=== PATIENT | male | born 1955 | race Caucasian/White ===

== ENCOUNTER 2019-04-03 16:08 | Inpatient (IN) ==
[2019-04-03] MEDS ORDERED: Acetaminophen 325 MG TABLET PO ONE (19:42)
[2019-04-03] MEDS ORDERED: *HR* HYDROcodone/Acet 5/325 mg TABLET PO ONE (20:10)
[2019-04-03] MEDS ORDERED: Naloxone 0.4 MG/ML INJ IVP PRN (21:03)
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
[2019-04-03] MEDS ORDERED: Nicotine 21 MG PATCH.TD24 TD PRN (23:14)
[2019-04-04] MEDS: Azithromycin 500 MG in D5% in Water 250 ML IVPB SCH (00:43)
[2019-04-04 03:54] LABS: ABG Base Excess 2 mEq/L (-2 to 3); ABG HCO3 26 mEq/L (21-27); ABG Oxygen Saturation 96 % (95-98); ABG PCO2 41 mmHg (35-45); ABG PH 7.42 pH Units (7.32-7.45); ABG PO2 77 mmHg (85-104); ABG TCO2 28 mEq/L (20-26)
[2019-04-04] MEDS: *HR* Heparin 5,000 UNIT/ML VIAL SQ SCH ×2 (06:18→17:37)
[2019-04-04 06:33] LABS: Alanine Aminotransferase 11 Units/L (7-52); Albumin 3.9 g/dL (3.5-5.7); Alkaline Phosphatase 71 Units/L (34-104); Aspartate Amino Transferase 11 Units/L (13-39); BUN/Creatinine Ratio 11 (6-26); Bilirubin,Total 0.4 mg/dL (0.3-1.0); Blood Urea Nitrogen 8 mg/dL (8-23); Carbon Dioxide 28 mEq/L (23-29); Chloride 106 mEq/L (98-107); Glucose 104 mg/dL (70-105); Osmolality,Calculated 289 (280-300); Potassium 3.9 mEq/L (3.5-5.1); Sodium 140 mEq/L (136-145); Total Protein 5.9 g/dL (6.4-8.9); eGFR For Non-African Americans > 60 (> 60)
[2019-04-04 07:51] LABS: Hematocrit 33.6 % (37.5-50.1); Hemoglobin 11.1 g/dL (12.9-16.9); Mean Corpuscular Hemoglobin 30.7 pg (28.0-33.3); Mean Corpuscular Volume 92.8 fL (83.0-100.0); Mean Platelet Volume 9.9 fL (9.4-12.4); Platelet Count 298 K/mcL (140-400); Red Blood Count 3.62 M/mcL (4.19-5.50); Red Cell Distribution Width 13.3 % (11.5-14.5)
--- NOTE | 2019-04-04 08:47 | Internal Med Progress Note ---
Hospitalist Progress Note - Encounter Date of Encounter: 04/04/19 Time of Encounter: 08:45 - Subjective Interval History: I have seen and evaluated the patient at bedside. Patient with intermittent spells of confusion during my evaluation. patient believes the he is at a half-way facility. he also reports vivid dreams, during the past 2 days, reports productive cough of clear sputum and chills. as per patient's daughter patient was having visual hallucination at home and the patient believed they were deers. - Exam Vitals: Temp Pulse Resp BP Pulse Ox 98.5 F 60 16 159/75 96 04/04/19 07:32 04/04/19 07:32 04/04/19 07:32 04/04/19 07:32 04/04/19 07:32 Exam: Vitals: Reviewed General: Alert and oriented x2. In no distress. with spells of confusion Skin: Normal color, no rash, no lesions. HEENT: EOM, pupils equal, round and reactive. Cardiovascular: RRR, normal S1 & S2, no rubs, murmurs or gallops. Lungs: CTA b/l, no wheezes or crackles. Abdomen: Soft, non-tender, no rigidity. ostomy bag. Extremities: No deformity, no edema. b/l knee replacements Neurological: No focal neurological deficits. Rest of the physical exam is non contributory - Assessment and Plan (1) Acute encephalopathy Current Visit: Yes Status: Acute Assessment and Plan: per family there has been a sudden change in the patient's mental status. where he is having visual hallucinations. patient also reported having vivid dreams. the etiology of this sudden change in mental status is unclear, patient with no meningeal signs and no focal neurological deficits. Plan will consult psychiatry as there has been a change in some of the patient mood stabilizing medication Patient unable to have a MRI. has a pacemaker neurology consulted, dementia with lewy bodies tend to have a similar presentation but this is unlikely due to sudden nature of the presentation. (2) Coronary heart disease Current Visit: No Status: Chronic Assessment and Plan: On dual antiplatelet therapy with Plavix and Aspirin 81 mg by mouth daily. (3) Hypertension Current Visit: No Status: Chronic Assessment and Plan: Blood pressure is well controlled on metoprolol 25 mg by mouth daily. (4) Psoriatic arthritis Current Visit: No Status: Acute Assessment and Plan: per patient chart he is on Adalimumab injections every two weeks (5) Pneumonia Current Visit: Yes Status: Suspected Assessment and Plan: base on report from [facility] there is a suspicious of LLL pneumonia on chest x- ray. will repeat the chest x-ray continue empiric coverage with ceftrixone and azithromycin. urine for atypical sputum culture DVT Prophylaxis: On heparin subq - Summary of Assessment and Plan Summary of Assessment and Plan: patient to remain in the hospital due to acute change in mental status, with confusion spells and visual hallucinations. - Time Spent with Patient Total time spent is greater than 50% in coordination of care (as documented) at patient's floor/unit and/or counseling patient: Greater than 35 minutes (40) Plan of Care Discussed with: nurse Internal Medicine: Result - Labs CBC & Chem 7: 04/04/19 06:31 04/04/19 06:02 Labs: Short CBC 04/04/19 Range/Units 06:31 WBC 6.8 (4.3-11.1) K/mcL Hgb 11.1 L (12.9-16.9) g/dL Hct 33.6 L (37.5-50.1) % Plt Count 298 (140-400) K/mcL BMP 04/04/19 06:02 Sodium 140 Potassium 3.9 Chloride 106 Carbon Dioxide 28 BUN 8 Creatinine 0.71 Glucose 104 Calcium 9.0 Liver Function 04/04/19 Range/Units 06:02 Total Bilirubin 0.4 (0.3-1.0) mg/dL AST 11 L (13-39) Units/L ALT 11 (7-52) Units/L Alkaline Phosphatase 71 (34-104) Units/L Albumin 3.9 (3.5-5.7) g/dL - ABG Interpretation ABG results: ABG ABG pH 7.42 pH Units (7.32-7.45) 04/04/19 03:48 ABG pCO2 41 mmHg (35-45) 04/04/19 03:48 ABG pO2 77 mmHg (85-104) L 04/04/19 03:48 ABG O2 Saturation 96 % (95-98) 04/04/19 03:48 (2) Coronary heart disease Qualifiers: Qualified Code(s): I25.10 - Atherosclerotic heart disease of [place] coronary artery without angina pectoris (3) Hypertension Qualifiers: Qualified Code(s): I10 - Essential (primary) hypertension (5) Pneumonia Qualifiers: Qualified Code(s): J18.9 - Pneumonia, unspecified organism
[2019-04-04] MEDS ORDERED: cefTRIAXone 1,000 MG in Water for inj. (sterile) 20 ML 10 ML IVP SCH (09:00)
[2019-04-04] MEDS ORDERED: Aspirin Enteric Coated 81 MG Tablet PO SCH (09:00)
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
[2019-04-04] MEDS ORDERED: Isovue-370 500 ML BOTTLE IVP ONE (15:23)
[2019-04-04] MEDS ORDERED: *HR* LORazepam 2 MG/ML VIAL IVP PRN (15:56)
[2019-04-04] MEDS ORDERED: Acetaminophen 325 MG TABLET PO PRN (17:22)
[2019-04-04] MEDS ORDERED: 0.9 % Sodium Chloride 500 ML IVC ONE (19:50)
--- NOTE | 2019-04-04 20:26 | Event Note ---
Date of Encounter: 04/04/19 Time of Encounter: 19:06 Notified by nurse of patient wanting to leave AMA and being uncooperative with staff. Went to bedside to assess patient, educated on plan of care, patient now agreeable to stay. Will order sitter due to intermittent confusion and being uncooperative with staff. Will also order 500ml fluid bolus due to elevated lactic acid. Nurse to notify of any changes or concerns. Discussed with Dr Parker.
[2019-04-04] MEDS ORDERED: *HR* LORazepam 2 MG/ML VIAL IVP ONE (23:55)
[2019-04-05] MEDS ORDERED: Haloperidol Lactate 5 MG/ML VIAL IVP ONE (00:31)
[2019-04-05] MEDS ORDERED: Dexmedetomidine HCl 400 MCG/100 ML MLS IVC SCH (00:45)
[2019-04-05] MEDS ORDERED: Haloperidol Lactate 5 MG/ML VIAL IM ONE (00:46)
[2019-04-05] MEDS: Dexmedetomidine HCl 400 MCG/100 ML MLS IVC SCH ×6 (02:00→23:35)
[2019-04-05] MEDS ORDERED: Naloxone 0.4 MG/ML INJ IVP PRN (02:19)
[2019-04-05] MEDS ORDERED: Nicotine 21 MG PATCH.TD24 TD PRN (02:19)
[2019-04-05] MEDS ORDERED: *HR* LORazepam 2 MG/ML VIAL IVP PRN (02:19)
[2019-04-05] MEDS ORDERED: Acetaminophen 325 MG TABLET PO PRN (02:19)
[2019-04-05] MEDS: *HR* Heparin 5,000 UNIT/ML VIAL SQ SCH (05:51)
[2019-04-05] MEDS ORDERED: Azithromycin 500 MG in D5% in Water 250 ML IVPB SCH (06:00)
[2019-04-05 08:04] LABS: Basophils % 0.4 %; Eosinophils # 0.1 K/mcL (0.0-0.6); Eosinophils % 0.8 %; Hematocrit 34.1 % (37.5-50.1); Hemoglobin 11.1 g/dL (12.9-16.9); Immature Granulocytes % 0.3 % (0-4); Lymphocytes % 12.9 %; Mean Corpuscular HGB Conc 32.6 g/dL (31.6-35.5); Mean Corpuscular Hemoglobin 30.6 pg (28.0-33.3); Mean Corpuscular Volume 93.9 fL (83.0-100.0); Mean Platelet Volume 9.5 fL (9.4-12.4); Monocytes # 0.5 K/mcL (0.0-1.3); Monocytes % 7.1 %; Neutrophils # 5.8 K/mcL (1.6-8.9); Platelet Count 253 K/mcL (140-400); Red Blood Count 3.63 M/mcL (4.19-5.50); Red Cell Distribution Width 13.2 % (11.5-14.5); Segmented Neutrophils % 78.5 %
[2019-04-05] MEDS ORDERED: Aminoglycoside Consult 1 EACH MC ONE (08:09)
[2019-04-05 08:27] LABS: BUN/Creatinine Ratio 14 (6-26); Blood Urea Nitrogen 10 mg/dL (8-23); Calcium 9.2 mg/dL (8.6-10.3); Carbon Dioxide 28 mEq/L (23-29); Chloride 105 mEq/L (98-107); Glucose 122 mg/dL (70-105); Magnesium 2.1 mg/dL (1.6-2.6); Osmolality,Calculated 290 (280-300); Phosphorous 3.4 mg/dL (2.7-4.5); Potassium 3.6 mEq/L (3.5-5.1); Sodium 140 mEq/L (136-145); eGFR For Non-African Americans > 60 (> 60)
[2019-04-05] MEDS: Aspirin Enteric Coated 81 MG Tablet PO SCH (08:57)
[2019-04-05] MEDS ORDERED: cefTRIAXone 1,000 MG in Water for inj. (sterile) 20 ML 10 ML IVP SCH (09:00)
[2019-04-05] MEDS ORDERED: cefTRIAXone 2,000 MG in Water for inj. (sterile) 20 ML 20 ML IVP SCH ×2 (09:00→21:00)
--- NOTE | 2019-04-05 09:47 | Internal Med Progress Note ---
Hospitalist Progress Note - Encounter Date of Encounter: 04/05/19 Time of Encounter: 09:41 - Subjective Interval History: I have seen and evaluated the patient at bedside. reported by the night team the patient had episode of confusion and agitation not responding to ativan or haldo. patient was started on a precedex drip. today during my evaluation patient is AOX4. In no distress, denies headache, nausea or vomiting. denies chest pain, knee pain or abdominal pain. - Exam Vitals: Temp Pulse Resp BP Pulse Ox 98.2 F 60 16 117/68 98 04/05/19 06:58 04/05/19 06:58 04/05/19 06:58 04/05/19 06:58 04/05/19 06:58 Exam: Vitals: Reviewed General: Alert and oriented x4. In no distress. Cardiovascular: RRR, normal S1 & S2, no rubs, murmurs or gallops. Lungs: CTA b/l, no wheezes or crackles. Abdomen: Soft, non-tender, no rigidity. ostomy bag. NABS in all 4 quadrants Extremities: No edema. right knee replacements Neurological: No focal neurological deficits. Rest of the physical exam is non contributory - Assessment and Plan (1) Acute encephalopathy Current Visit: Yes Status: Acute Assessment and Plan: intermittent confusion/agitation unclear etiology, at first believed it was associated with discontinuation of clonazepam (discontinued 2 weeks ago), vs possible infection, viral vs bacterial (less likely). patient with an episode of acute confusion and agitation last night. also a fever 101.0. patient with no nucal rigidity, headache or other meningeal signs. patient was started on vancomycin per pharmacy protocol, ceftriaxone increased to 2gm/IV Q12HRs. discussed with neurology about obtaining an LP, but the patient has been on clop idogrel and IR stated the patient needs to be off the medication for at least 7 days before they do the LP Neurologist will attempt LP at bedside. will start the patient empirically on acyclovir Head CT and CTA: unremarkable patient unable to have MRI due to non-compatible pacemaker ID has been consulted. EEG ordered psychiatry consulted, recommendations to follow. ESR, CRP, ADITHYA ordered titrate precedex drip off (2) Coronary heart disease Current Visit: No Status: Chronic Assessment and Plan: Patient on dual antiplatelet therapy. hold plavix, continue aspirin 81mg/PO daily (3) Hypertension Current Visit: No Status: Chronic Assessment and Plan: Blood pressure is well controlled. Patient is on metoprolol 25 mg by mouth daily. (4) Psoriatic arthritis Current Visit: No Status: Acute Assessment and Plan: patient on Otezla. (5) Pneumonia Current Visit: Yes Status: Suspected Assessment and Plan: I do not believe the patient has pneumonia. chest x-ray before and after hydration: No acute abnormality. patient denies productive cough. discontinue azithromycin DVT Prophylaxis: Hold today dose of heparin. patient will have an LP - Summary of Assessment and Plan Summary of Assessment and Plan: patient to remain in the hospital due to encephalopathy. unclear etiology. scheduled for LP today. - Time Spent with Patient Total time spent is greater than 50% in coordination of care (as documented) at patient's floor/unit and/or counseling patient: Greater than 35 minutes (45) Plan of Care Discussed with: patient (his daughter and the nurse.) Internal Medicine: Result - Labs CBC & Chem 7: 04/05/19 07:47 04/05/19 07:47 Labs: Short CBC 04/05/19 Range/Units 07:47 WBC 7.4 (4.3-11.1) K/mcL Hgb 11.1 L (12.9-16.9) g/dL Hct 34.1 L (37.5-50.1) % Plt Count 253 (140-400) K/mcL Neutrophils # 5.8 (1.6-8.9) K/mcL BMP 04/05/19 07:47 Sodium 140 Potassium 3.6 Chloride 105 Carbon Dioxide 28 BUN 10 Creatinine 0.74 Glucose 122 H Calcium 9.2 - ABG Interpretation ABG results: ABG ABG pH 7.42 pH Units (7.32-7.45) 04/04/19 03:48 ABG pCO2 41 mmHg (35-45) 04/04/19 03:48 ABG pO2 77 mmHg (85-104) L 04/04/19 03:48 ABG O2 Saturation 96 % (95-98) 04/04/19 03:48 - Impressions Impressions Chest X-Ray 04/04/19 08:41 IMPRESSION: 1. No acute abnormality. D/ / Charles Yarbrough MD / Charles Yarbrough MD Interpreting Provider: Charles Yarbrough MD Head CTA 04/04/19 15:23 IMPRESSION: 1. No acute intracranial abnormality. 2. No high-grade stenosis or focal occlusion involving the intracranial vasculature. No evidence of intracranial aneurysm. 3. No CTA evidence of vasculitis. Please note that conventional angiogram would be a more sensitive examination for evaluation of vasculitis. 4. Paranasal sinus disease, with evidence of previous sinus surgery. This is partially imaged. D/ / 04/04/2019 17:18:26 Zuhair Alba MD / nirmala Interpreting Provider: Zuhair Alba MD (2) Coronary heart disease Qualifiers: Coronary Disease-Associated Artery/Lesion type: [place] artery [place] vs. transplanted heart: [place] heart Associated angina: without angina Qualified Code(s): I25.10 - Atherosclerotic heart disease of [place] coronary artery wit hout angina pectoris (3) Hypertension Qualifiers: Hypertension type: essential hypertension Qualified Code(s): I10 - Essential (primary) hypertension (5) Pneumonia Qualifiers: Pneumonia type: due to unspecified organism Laterality: unspecified laterality Lung location: unspecified part of lung Qualified Code(s): J18.9 - Pneumonia, unspecified organism
[2019-04-05] MEDS ORDERED: Acyclovir 750 MG in D5% in Water 250 ML IVPB SCH (09:52)
[2019-04-05] MEDS: Azithromycin 500 MG in D5% in Water 250 ML IVPB SCH (10:37)
--- NOTE | 2019-04-05 11:13 | Neurology Progress Note ---
<Carlos Salcido J - Last Filed: 04/05/19 16:47> Date of Encounter: 04/05/19 Time of Encounter: 11:10 Assessment and Plan (1) Acute encephalopathy Current Visit: Yes Status: Acute Clinically, the patient continues to have waxing and waning confusion with moments of lucidity. He continues to deny headaches, neck stiffness or neck pain. His neurological exam is nonfocal and nonlateralizing. His daughters at the bedside and notes that he has had recent abrupt discontinuation of clonazepam and one could consider that his acute encephalopathy could be due to withdrawal of benzodiazepines. However, he does have a known history of septic joint 3 S/P knee arthroscopy. 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 Agree with psychiatric consultation. EEG pending. CTA head and neck completed showing no acute intracranial abnormality, no high-grade stenosis or focal occlusion involving the intracranial vasculature, no evidence of aneurysm, no evidence of vasculitis. Given his acute encephalopathy be also recommend urinalysis and urine tox screen, and rule out infectious etiology. Recommend orthopedic consultation for evaluation of right knee given history of septic joint 3 and ongoing knee pain and joint tenderness. Blood cultures pending. Neurology will continue to follow. Subjective Principal diagnosis: Acute encephalopathy Interval history: Patient seen in follow-up for acute encephalopathy. He was transferred to [facility] overnight for closer monitoring due to confusion and combativeness. This morning the patient is having intermittent episodes of confusion. His daughters at the bedside and reports that this all began approximately 4 days ago and has been getting worse since. She notes that he is been on Ativan in the past chronically but this was abruptly discontinued by his PCP in late March. She states that normally he is very independent, calm and cooperative and is never combative. She is concerned that recent medication changes may have led to his condition. Additionally, both the daughter and patient notes that he has had 3 right knee replacements and that also have ended up with a septic joint. The patient notes that his right knee is very tender and that this is been getting worse over the last week or so. Objective - Constitutional Vitals: Temp Pulse Resp BP Pulse Ox 98.2 F 60 16 109/56 98 04/05/19 06:58 04/05/19 09:24 04/05/19 06:58 04/05/19 09:24 04/05/19 06:58 Exam: Examination: General Examination: *CONSTITUTIONAL: Alert and oriented 3, no acute distress, T4 to 5 signs *GENERAL APPEARANCE OF PATIENT appears healthy and well groomed *EYES: pupils equal, round, reactive to light and accommodation, conjunctiva clear without masses or ulcerations, fundi normal. *CARDIOVASCULAR RRR, S1, S2, no mumurs, rubs, or gallops, no peripheral edema, distal temperature normal, dorsalis pedis pulses normal. Musculoskeletal: *GAIT AND STATION normal, with normal Romberg testing, no abnormalities such as broad base gait or spasticity *ASSESSMENT OF MUSCLE STRENGTH IN THE UPPER AND LOWER EXTREMITIES bilateral deltoid, bicep, tricep, toll test worker strength, hip flexors ,anterior tibialis, dorsoflexion of the foot 5/5 *MUSCLE TONE IN THE UPPER AND LOWER EXTREMITIES normal. No abnormal movements, fasciculations or atrophy identified. PSYCH: Not responding to internal stimuli, does not appear to be hallucinating, calm and cooperative Neurological: *ORIENTATION to person, situation, time and place *RECURRENT AND REMOTE MEMORY intact *ATTENTION AND CONCENTRATION are altered; has waxing and waning episodes of confusion and disorientation as well as some loose association with moments of lucidity *LANGUAGE FUNCTION no significant aphasia or dysarthia was noted. *FUND OF KNOWLEDGE aware of current events, past history, vocabulary *MENTAL attention span and concentration normal. *CN II optic fundi were normal, no papilledema noted. *CN III,IV, PERRLA extraocular eye movements were full, no nystagmus and no ptosis noted. *CN V shows normal sensation and jaw opens symmetrically. *CN VII shows normal facial movement symmetrically, upper and lower bilaterally. *CN VIII shows no significant hearing loss on exam *CN IX,,X palate elevated symmetrically *CN XI normal strength in the sternocleidomastoid muscles, symmetrical shoulder shrugging. *CN XII tongue protruded in the midline, with normal strength and movement. *SENSORY EXAMINATION light touch intact *REFLEXES: deep tendon reflexes were normal and symmetrical , grade 2/4 diffusely, no pathological reflexes were noted. *CEREBELLAR TESTING normal finger to nose, heel/knee/ibrahim *PAIN LEVEL 4/10 right knee pain Results - Laboratory Findings CBC and BMP: 04/05/19 07:47 04/05/19 07:47 Abnormal lab findings: Abnormal lab results RBC 3.63 M/mcL (4.19-5.50) L 04/05/19 07:47 Hgb 11.1 g/dL (12.9-16.9) L 04/05/19 07:47 Hct 34.1 % (37.5-50.1) L 04/05/19 07:47 ESR 19 mm/hr (0-10) H 04/05/19 07:47 ABG pO2 77 mmHg (85-104) L 04/04/19 03:48 ABG Total CO2 28 mEq/L (20-26) H 04/04/19 03:48 Glucose 122 mg/dL (70-105) H 04/05/19 07:47 POC Glucose 106 mg/dL (70-99) H 04/04/19 17:32 Lactic Acid 2.8 mmol/L (0.5-2.2) H 04/04/19 18:07 AST 11 Units/L (13-39) L 04/04/19 06:02 13 mg/L (Less than 10) H 04/05/19 10:20 5.9 g/dL (6.4-8.9) L 04/04/19 06:02 2.0 g/dL (2.4-3.5) L 04/04/19 06:02 <Christiano Jamison - Last Filed: 04/05/19 18:12> Date of Encounter: 04/05/19 Assessment and Plan (1) Acute encephalopathy Current Visit: Yes Status: Acute Patient at this time seems to be less agitated. He seems to be fairly lucid at the time however this seems to fluctuate during the day. Generally I would not expect a primary neurologic problem to behave in this manner other than seizure. Certainly I would not expect a central nervous system infectious process to behave in this manner. I agree that the underlying etiology of this is more likely due to medication effect or some other underlying metabolic etiology. Unfortunately I am not going to be able to perform a lumbar puncture. Apparently he has a morphine pump there is localized somewhere between the L2 and L3 levels. I am not comfortable performing a bedside lumbar puncture on this patient. However from a clinical perspective it is not likely that we are dealing with a bacterial meningitis. Also the EEG was normal without any evidence of temporal lobe slowing or spikes. The CT scan of the head revealed no evidence of temporal lobe enhancement. I will also feel that these 2 factors along with his clinical presentation which is been my waxing and waning suggest a low probability of herpes encephalitis. However without an LP we cannot be 100% certain. With that in mind unless another etiology to explain his mental status changes is identified, we should maintain the empiric acyclovir treatment per protocol. Also agree with ruling out the right knee as a source of infection. Subjective Interval history: The chart was reviewed, the patient was seen and personally examined indepen dently.I have personally performed a [id number] assessment of the patient and have reviewed the PA/ECMO SPECIALIST note. My impressions are as follows: I agree with the history as recorded above by the PRINCIPAL DATA ARCHITECT. Objective - Constitutional Vitals: Temp Pulse Resp BP Pulse Ox 99.1 F 60 18 129/68 96 04/05/19 11:28 04/05/19 17:26 04/05/19 11:28 04/05/19 17:26 04/05/19 17:26 Exam: I did perform a [id number] for neurologic examination of this patient. I agree with the documentation as above. Results - Laboratory Findings CBC and BMP: 04/05/19 07:47 04/05/19 07:47 Abnormal lab findings: Abnormal lab results RBC 3.63 M/mcL (4.19-5.50) L 04/05/19 07:47 Hgb 11.1 g/dL (12.9-16.9) L 04/05/19 07:47 Hct 34.1 % (37.5-50.1) L 04/05/19 07:47 ESR 19 mm/hr (0-10) H 04/05/19 07:47 ABG pO2 77 mmHg (85-104) L 04/04/19 03:48 ABG Total CO2 28 mEq/L (20-26) H 04/04/19 03:48 Glucose 122 mg/dL (70-105) H 04/05/19 07:47 POC Glucose 106 mg/dL (70-99) H 04/04/19 17:32 Lactic Acid 2.8 mmol/L (0.5-2.2) H 04/04/19 18:07 AST 11 Units/L (13-39) L 04/04/19 06:02 13 mg/L (Less than 10) H 04/05/19 10:20 5.9 g/dL (6.4-8.9) L 04/04/19 06:02 2.0 g/dL (2.4-3.5) L 04/04/19 06:02
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
[2019-04-05 16:41] LABS: Adenovirus Not Detected (Not Detect); Bordetella Pertussis Not Detected (Not Detect); Chlamydophila pneumoniae Not Detected (Not Detect); Coronavirus 229E Not Detected (Not Detect); Coronavirus HKU1 Not Detected (Not Detect); Coronavirus NL63 Not Detected (Not Detect); Coronavirus OC43 Not Detected (Not Detect); Human Metapneumovirus Not Detected (Not Detect); Human Rhinovirus/Enterovirus Not Detected (Not Detect); Influenza A Subtype 2009 H1 Not Detected (Not Detect); Influenza A Untypeable Not Detected (Not Detect); Influenza B Not Detected (Not Detect); Mycoplasma pneumoniae Not Detected (Not Detect); Parainfluenza Virus 1 Not Detected (Not Detect); Parainfluenza Virus 2 Not Detected (Not Detect); Parainfluenza Virus 3 Not Detected (Not Detect); Parainfluenza Virus 4 Not Detected (Not Detect); Respiratory Syncytial Virus Not Detected (Not Detect)
--- NOTE | 2019-04-05 18:08 | EEG/EMG/Oth Biometrics Report ---
EEG Procedure Report EEG Procedure: Routine EEG Procedure Note: This is a report of a 21 channel bipolar and referential montage EEG. Posterior dominant rhythm of 8 Hz moderate to low voltage alpha frequencies identified symmetrically in the posterior head regions. This rhythm attenuates symmetrically evaluating. Superimposed beta frequencies are present throughout the recording as well. Hyperventilation is not performed during the recording. Intermittent drowsiness is identified in recording as reference by dropout of the posterior dominant rhythm and emergence of vertex activity. However the patient does not progress to stage II sleep. Photic stimulations performed and produces a symmetric driving response. EKG rhythm strip reveals normal sinus rhythm at 72 bpm. Impressions: This EEG recording is within normal limits. There is no evidence of epileptiform activity identified during the recording. Comment: A normal EEG does not preclude a diagnosis of seizure or epilepsy. If the clinical suspicion for seizure activity is high, serial EEGs or perhaps a prolonged recording may increase the yield. Please correlate clinically.
[2019-04-05] MEDS: Acyclovir 750 MG in D5% in Water 250 ML IVPB SCH (18:28)
[2019-04-05] MEDS: APREMILAST 30 MG PO SCH (21:21)
[2019-04-05] MEDS: Doxycycline 100 MG CAPSULE PO SCH (21:24)
[2019-04-06] MEDS: Acyclovir 750 MG in D5% in Water 250 ML IVPB SCH ×3 (04:24→18:38)
--- NOTE | 2019-04-06 07:48 | Neurology Progress Note ---
Date of Encounter: 04/06/19 Time of Encounter: 07:46 Assessment and Plan (1) Acute encephalopathy Current Visit: Yes Status: Acute Ultimately it seems that this patient was experiencing symptoms of acute delirium. We will not able to clearly identify a specific cause. In my opinion a central nervous system infectious process seems unlikely, particularly since the CT scan was unrevealing, and the EEG was normal. From a clinical perspective he did not appear to be compromised enough for this to have been secondary to a bacterial meningitis. Question remains whether not he may have had a herpes encephalitis that was treated with acyclovir to the point where he is now improved. In any regard his mental status seems to be improving day by day. I am not been able to identify a primary central nervous system process here. Consider having the patient home on 7 days of oral acyclovir. Otherwise I will reevaluate him at your request. Subjective Principal diagnosis: Acute encephalopathy Interval history: Chart was reviewed, the patient was seen and examined. No acute changes were reported overnight. Patient this morning states he feels fine. Overall central processing is gradually improving day by day. He knows he is in [facility], he knows the month is March. He is anxious today because he was supposed to have his morphine pump refilled in the gentleman who takes care of this was going to be coming to his home today. He wants to call the gentleman and inform him that he will not be at home and that he is in the hospital his conversation and processing however are intact. He denies headache. Denies any involuntary movements. Psychiatry consult seen and appreciated. I agree that more than likely we are dealing with delirium, however the etiology has not been clearly established. I was unable to complete the spinal tap yesterday because I am not able to clearly identify the location of the pump tubing which she states is in the lumbar spine. Objective - Constitutional Vitals: Temp Pulse Resp BP Pulse Ox 98.5 F 60 16 128/73 95 04/06/19 03:32 04/06/19 03:32 04/06/19 03:32 04/06/19 03:32 04/06/19 03:32 Exam: Examination: General Examination: *CONSTITUTIONAL: Alert and oriented x 3 *GENERAL APPEARANCE OF PATIENT appears healthy and well groomed *EYES: pupils equal, round, reactive to light and accommodation, conjunctiva clear without masses or ulcerations, fundi normal. *CARDIOVASCULAR RRR, S1, S2, no mumurs, rubs, or gallops, no peripheral edema, distal temperature normal, dorsalis pedis pulses normal. Musculoskeletal: *GAIT AND STATION not assessed, however his right knee is partially fused. *ASSESSMENT OF MUSCLE STRENGTH IN THE UPPER AND LOWER EXTREMITIES bilateral deltoid, bicep, tricep, lease out worker strength, hip flexors ,anterior tibialis, are all 5/5. I am unable to assess the right quadriceps strength. Left quadricep strength is normal. *MUSCLE TONE IN THE UPPER AND LOWER EXTREMITIES normal strength bulk and tone of both upper extremities. There is some atrophy of the right quadriceps and right leg below the knee secondary to immobility of the right knee. He has normal bulk and tone of the left lower extremity. Neurological: *ORIENTATION to person, situation, time and place *RECURRENT AND REMOTE MEMORY intact *ATTENTION AND CONCENTRATION are altered; has waxing and waning episodes of confusion and disorientation as well as some loose association with moments of lucidity *LANGUAGE FUNCTION no significant aphasia or dysarthia was noted. *FUND OF KNOWLEDGE aware of current events, past history, vocabulary *MENTAL attention span and concentration normal. *CN II optic fundi were normal, no papilledema noted. *CN III,IV, PERRLA extraocular eye movements were full, no nystagmus and no ptosis noted. *CN V shows normal sensation and jaw opens symmetrically. *CN VII shows normal facial movement symmetrically, upper and lower bilaterally. *CN VIII shows no significant hearing loss on exam *CN IX,,X palate elevated symmetrically *CN XI normal strength in the sternocleidomastoid muscles, symmetrical shoulder shrugging. *CN XII tongue protruded in the midline, with normal strength and movement. *SENSORY EXAMINATION light touch intact *REFLEXES: deep tendon reflexes were normal and symmetrical , grade 2/4 diffusely, no pathological reflexes were noted. *CEREBELLAR TESTING normal finger to nose, heel/knee/ibrahim *PAIN LEVEL 4/10 right knee pain Results - Laboratory Findings CBC and BMP: 04/05/19 07:47 04/05/19 07:47 Abnormal lab findings: Abnormal lab results RBC 3.63 M/mcL (4.19-5.50) L 04/05/19 07:47 Hgb 11.1 g/dL (12.9-16.9) L 04/05/19 07:47 Hct 34.1 % (37.5-50.1) L 04/05/19 07:47 ESR 19 mm/hr (0-10) H 04/05/19 07:47 ABG pO2 77 mmHg (85-104) L 04/04/19 03:48 ABG Total CO2 28 mEq/L (20-26) H 04/04/19 03:48 Glucose 122 mg/dL (70-105) H 04/05/19 07:47 POC Glucose 106 mg/dL (70-99) H 04/04/19 17:32 Lactic Acid 2.8 mmol/L (0.5-2.2) H 04/04/19 18:07 AST 11 Units/L (13-39) 04/04/19 06:02 13 mg/L (Less than 10) H 04/05/19 10:20 5.9 g/dL (6.4-8.9) 04/04/19 06:02 2.0 g/dL (2.4-3.5) 04/04/19 06:02
[2019-04-06] MEDS: APREMILAST 30 MG PO SCH ×2 (08:30→19:57)
[2019-04-06] MEDS: Aspirin Enteric Coated 81 MG Tablet PO SCH (08:35)
[2019-04-06] MEDS: Doxycycline 100 MG CAPSULE PO SCH ×2 (08:35→19:57)
[2019-04-06 09:41] LABS: Basophils % 0.4 %; Eosinophils # 0.1 K/mcL (0.0-0.6); Eosinophils % 1.7 %; Hematocrit 34.2 % (37.5-50.1); Immature Granulocytes % 0.4 % (0-4); Lymphocytes # 0.7 K/mcL (0.6-4.6); Mean Corpuscular HGB Conc 32.2 g/dL (31.6-35.5); Mean Corpuscular Hemoglobin 30.1 pg (28.0-33.3); Mean Corpuscular Volume 93.4 fL (83.0-100.0); Mean Platelet Volume 9.7 fL (9.4-12.4); Monocytes # 0.4 K/mcL (0.0-1.3); Monocytes % 5.1 %; Neutrophils # 7.1 K/mcL (1.6-8.9); Platelet Count 250 K/mcL (140-400); Red Blood Count 3.66 M/mcL (4.19-5.50); Red Cell Distribution Width 13.1 % (11.5-14.5); Segmented Neutrophils % 84.4 %
[2019-04-06 09:57] LABS: BUN/Creatinine Ratio 10 (6-26); Blood Urea Nitrogen 7 mg/dL (8-23); Calcium 8.8 mg/dL (8.6-10.3); Carbon Dioxide 29 mEq/L (23-29); Chloride 106 mEq/L (98-107); Glucose 119 mg/dL (70-105); Magnesium 1.9 mg/dL (1.6-2.6); Osmolality,Calculated 287 (280-300); Phosphorous 3.2 mg/dL (2.7-4.5); Potassium 3.7 mEq/L (3.5-5.1); Sodium 139 mEq/L (136-145); eGFR For Non-African Americans > 60 (> 60)
--- NOTE | 2019-04-06 13:55 | Infectious Disease Progress No ---
ID Progress Note Date of Encounter: 04/06/19 Time of Encounter: 11:30 - Subjective Subjective: Since seen and examined. Overnight events noted. Patient states overall he feels 100% better today. His daughter endorses that he has had a complete turnaround since admission. Denies fevers, chills, or rigors. Denies chest pain, shortness of breath, or cough. Denies nausea, vomiting, diarrhea, or constipation. Denies abdominal pain or urinary complaints. Reports chronic pain to the right knee but is at baseline. Denies oral thrush or new skin lesions. - Objective CBC & Chem 7: 04/06/19 09:23 04/06/19 09:23 - Exam Vitals: Temp Pulse Resp BP Pulse Ox 98.5 F 68 16 141/70 95 04/06/19 12:01 04/06/19 12:01 04/06/19 12:01 04/06/19 12:01 04/06/19 12:01 Exam: Head: Atraumatic, normal inspection, normocephalic. Eye: EOMI, PERRLA, no scleral icterus noted. ENT: Mucous membranes moist. No odontogenic infection noted. Neck: Normal inspection, no meningismus. Respiratory: Clear to auscultation. No rales, respiratory distress, rhonchi, or wheezes noted. Cardiovascular: Regular rate and rhythm, S1 and S2 audible. No murmurs, rubs, or gallops. GI: Soft, nondistended, normal bowel sounds. Extremities:No joint swelling, pedal edema, or tenderness noted. Well-healed surgical scar noted to the right anterior knee without surrounding erythema or warmth. Mild tenderness noted with palpation. Mild edema noted. Patient states this is at baseline. Back: Normal inspection. No vertebral tenderness noted. Neurological: Alert, oriented 3, no focal deficits. Psychiatric: normal affect, normal mood. Skin: Dry, intact, warm. Normal color. No rashes. - Assessment and Plan (1) Acute encephalopathy Status: Resolved Etiology: Unclear. Infectious versus other. No meningeal signs. CT head negative except for chronic sinusitis. LP not completed. Neurology consult it. Feels that there is a low index of suspicion for central nervous system infection, but it is possible. Resolved. Currently on acyclovir. SNOMED Code(s): 03014323, 941494445 (2) Fever Status: Acute Etiology: unlcear. Associated with AMS but mentation is back at baseline. Appreciate neurology and psych eval and input. RIP negative. Resolved. Qualifiers: Fever type: unspecified Qualified Code(s): R50.9 - Fever, unspecified SNOMED Code(s): 535340808 (3) History of total knee arthroplasty Status: Chronic Currently does not appear frankly infected. ESR and CRP not impressive. Patient on chronic oral suppressive doxycycline. Qualifiers: Laterality: right Qualified Code(s): Z96.651 - Presence of right artificial knee joint SNOMED Code(s): 4024322084098, 3018390881298, 79519882009778 (4) Knee pain, right Status: Acute Chronic, at baseline per patient report. Pain management per the primary team. Qualifiers: Chronicity: acute Qualified Code(s): M25.561 - Pain in right knee SNOMED Code(s): 58851692 (5) Nicotine dependence Status: Acute Qualifiers: Nicotine product type: cigarettes Substance use status: uncomplicated Qualified Code(s): F17.210 - Nicotine dependence, cigarettes, uncomplicated SNOMED Code(s): 58893178 (6) Penicillin allergy Status: Acute Had allergy to ampicillin with rash when he was in his 30's. SNOMED Code(s): 81696571 (7) S/P colostomy Status: Acute States output back to normal. SNOMED Code(s): 447616979, 362879029, 288411230 (8) Sinusitis Status: Acute Chronic, noted on CT, but could contribute to the patient's clinical picture I suppose. Qualifiers: Sinusitis location: unspecified location Chronicity: chronic Qualified Code(s): J32.9 - Chronic sinusitis, unspecified SNOMED Code(s): 16259047 - Recommendations Recommendations: Continue doxycycline 100mg PO BID. Start clindamycin PO for possible sinusitis. Duration of treatment depends on the clinical picture. Monitor renal function and dose-adjust antibiotics. Consult Discharge Plan - Plan Instructions: Clindamycin (By mouth), Acyclovir (By mouth) Referrals: Ophelia Ruggiero CNP [Advanced Practice Nurse] - 04/13/19 9:30 am Prescriptions: Clindamycin [Cleocin] 300 mg PO Q12HR 6 Days #12 capsule Acyclovir [Zovirax] 800 mg PO BID 7 Days #14 tablet - Attending Attestation I have personally performed a face to face evaluation on this patient. I have reviewed and agree with the care plan. History and Exam by me shows: Assessment and plan: 1.Acute encephalopathy 2.Fevers 3.HISTORY of total knee arthroplasty 4.Penicillin allergy 5.Status post colostomy 6.Sinusitis Recommendations Continue doxycycline 100mg PO BID. Start clindamycin PO for possible sinusitis. Duration of treatment depends on the clinical picture. Monitor renal function and dose-adjust antibiotics.
--- NOTE | 2019-04-06 15:18 | Internal Med Progress Note ---
Hospitalist Progress Note - Encounter Date of Encounter: 04/06/19 Time of Encounter: 15:15 - Subjective Interval History: I have seen and evaluated the patient at bedside. today patient is AOX4. as per patient's daughter at bedside who has been with the patient the whole morning states that the patient is back to his baseline with episodes of confusion. patient denies chest pain, shortness of breath, nausea, vomiting or loose stool. - Exam Vitals: Temp Pulse Resp BP Pulse Ox 98.5 F 68 16 141/70 95 04/06/19 12:01 04/06/19 12:01 04/06/19 12:04/06/19 12:04/06/19 12:01 Exam: Vitals: Reviewed General: Alert and oriented x4. In no distress. Cardiovascular: RRR, normal S1 & S2, no rubs, murmurs or gallops. Lungs: CTA b/l, no wheezes or crackles. Abdomen: Soft, non-tender, no rigidity. ostomy bag. NABS in all 4 quadrants Extremities: No edema. right knee replacements Neurological: No focal neurological deficits. Rest of the physical exam is non contributory - Assessment and Plan (1) Acute encephalopathy Current Visit: Yes Status: Resolved Assessment and Plan: acute encephalopathy has resolved. unclear etiology. unable to do LP due to pain pump location. will continue acyclovir per ID recommendations. titrate precedex drip off as tolerated (2) Coronary heart disease Current Visit: No Status: Chronic Assessment and Plan: continue aspirin 81mg/PO daily will resume palvix (3) Hypertension Current Visit: No Status: Chronic Assessment and Plan: BP is well controlled on metoprolol 25mg/PO daily (4) Psoriatic arthritis Current Visit: No Status: Acute Assessment and Plan: patient on Otezla. (5) Pneumonia Current Visit: Yes Status: Suspected (6) Sinusitis Current Visit: Yes Status: Acute Assessment and Plan: patient started on clindamycin 300mg/PO BID (7) History of total knee arthroplasty Current Visit: No Status: Chronic Assessment and Plan: patient with a Hx of chronic knee infection on supressive antibiotics. doxycilcine 100mg/PO BID. DVT Prophylaxis: on heparin subQ - Summary of Assessment and Plan Summary of Assessment and Plan: will keep patient in the hospital 24 more hours to titrate off precedex drip. potential discharge tomorrow - Time Spent with Patient Total time spent is greater than 50% in coordination of care (as documented) at patient's floor/unit and/or counseling patient: Greater than 35 minutes (40) Plan of Care Discussed with: patient (his daughter and the nurse) Internal Medicine: Result - Labs CBC & Chem 7: 04/06/19 09:23 04/06/19 09:23 Labs: Short CBC 04/06/19 Range/Units 09:23 WBC 8.4 (4.3-11.1) K/mcL Hgb 11.0 L (12.9-16.9) g/dL Hct 34.2 L (37.5-50.1) % Plt Count 250 (140-400) K/mcL Neutrophils # 7.1 (1.6-8.9) K/mcL BMP 04/06/19 09:23 Sodium 139 Potassium 3.7 Chloride 106 Carbon Dioxide 29 BUN 7 L Creatinine 0.72 Glucose 119 H Calcium 8.8 - ABG Interpretation ABG results: ABG ABG pH 7.42 pH Units (7.32-7.45) 04/04/19 03:48 ABG pCO2 41 mmHg (35-45) 04/04/19 03:48 ABG pO2 77 mmHg (85-104) L 04/04/19 03:48 ABG O2 Saturation 96 % (95-98) 04/04/19 03:48 - Impressions Impressions Knee X-Ray 04/05/19 11:40 IMPRESSION: Postsurgical changes from revision right knee arthroplasty. No acute osseous abnormality. D/ / 04/05/2019 15:14:28 Xenia Alba MD / Amy Rhodes Interpreting Provider: Xenia Alba MD Consult Discharge Plan - Plan Referrals: Ophelia Ruggiero NURSING HOME ADMISSIONS DIRECTOR [Advanced Practice Nurse] - 04/13/19 9:30 am (2) Coronary heart disease Qualifiers: Coronary Disease-Associated Artery/Lesion type: [place] artery [place] vs. transplanted heart: rosebud heart Associated angina: without angina Qualified Code(s): I25.10 - Atherosclerotic heart disease of [place] coronary artery without angina pectoris (3) Hypertension Qualifiers: Hypertension type: essential hypertension Qualified Code(s): I10 - Essential (primary) hypertension (5) Pneumonia Qualifiers: Pneumonia type: due to unspecified organism Laterality: unspecified lat erality Lung location: unspecified part of lung Qualified Code(s): J18.9 - Pneumonia, unspecified organism (6) Sinusitis Qualifiers: Sinusitis location: unspecified location Chronicity: chronic Qualified Code(s): J32.9 - Chronic sinusitis, unspecified (7) History of total knee arthroplasty Qualifiers: Laterality: right Qualified Code(s): Z96.651 - Presence of right artificial knee joint
[2019-04-06] MEDS: *HR* Heparin 5,000 UNIT/ML VIAL SQ SCH (17:27)
[2019-04-06] MEDS ORDERED: Melatonin 3 MG TABLET PO PRN (22:31)
[2019-04-06 22:39] LABS: Bilirubin,Urine Negative (Negative); Blood,Urine Negative (Negative); Clarity,Urine Clear (Clear); Color,Urine Yellow (Yellow); Glucose,Urine (UA) Normal (Normal); Ketones,Urine Negative (Negative); Leukocyte Esterase,Urine Negative (Negative); Nitrite,Urine Negative (Negative); PH,Urine 6.5 pH Units (5.0-8.0); Protein,Urine Negative (Neg-Trace); Specific Gravity,Urine 1.011 (1.010-1.025); Urobilinogen,Urine Normal (Normal)
[2019-04-07] MEDS: Acyclovir 750 MG in D5% in Water 250 ML IVPB SCH (02:27)
[2019-04-07] MEDS: *HR* Heparin 5,000 UNIT/ML VIAL SQ SCH (05:40)
[2019-04-07 07:50] VITALS: BP 142/71
[2019-04-07] MEDS: Aspirin Enteric Coated 81 MG Tablet PO SCH (08:03)
[2019-04-07] MEDS: Doxycycline 100 MG CAPSULE PO SCH (08:03)
[2019-04-07] MEDS: APREMILAST 30 MG PO SCH (08:18)
--- NOTE | 2019-04-07 09:20 | Discharge Summary ---
Orders not resulted at time of discharge: Pending orders 04/04/19 18:07 Culture,Blood [BC] Stat 04/05/19 10:20 ADITHYA IgG FAUSTO rflx IFA Stat 04/05/19 15:39 CSF ROUTINE [BF] Routine Varicella-Zoster Virus PCR Routine Date of Encounter: 04/07/19 Time of Encounter: 09:16 - Discharge Diagnosis (1) Acute encephalopathy Priority: Primary Status: Resolved (2) Coronary heart disease Priority: Secondary Status: Chronic Qualifiers: Qualified Code(s): I25.10 - Atherosclerotic heart disease of [place] coronary artery without angina pectoris (3) Hypertension Priority: Secondary Status: Chronic Qualifiers: Qualified Code(s): I10 - Essential (primary) hypertension (4) Psoriatic arthritis Priority: Secondary Status: Chronic (5) Pneumonia Priority: Secondary Status: Suspected Qualifiers: Qualified Code(s): J18.9 - Pneumonia, unspecified organism (6) Sinusitis Priority: Secondary Status: Acute Qualifiers: Qualified Code(s): J32.9 - Chronic sinusitis, unspecified (7) History of total knee arthroplasty Priority: Secondary Status: Chronic Qualifiers: Qualified Code(s): Z96.651 - Presence of right artificial knee joint Hospital course: Mr. Carrasco is a 63 year old male past medical history of depression, hypertension, coronary artery disease, and hyperlipidemia. Patient was brought to the hospital due to 2-3 days of confusion. He has had a recent medication change by his PCP to Buspar from Clonazepam. Patient was admitted to the hospital due to delirium of unclear etiology. CT and CTA of head and neck: unremarkable. MRI not done as patient has a pacemaker. Unable to obtain and LP as patient has a pain pump and the location of the wire in the spinal cord interfere with it. Due to patient spiking a fever of 101.5, he was started on empiric coverage with acyclovir. ID and neurology were involved in patient care. His acute change in mental status have resolved and the patient is hemodynamically stable to be discharged home. Recommended to follow up with a psychiatrist as outpatient for management of his mood stabilizing medications. discussed with psychiatry and recommended to discontinue buspar - Time Spent with Patient Total time spent providing and/or coordinating discharge services: Time spent: Greater than 30 minutes (35) - Discharge Medications Prescriptions: New Clindamycin [Cleocin] 300 mg PO Q12HR 6 Days #12 capsule Acyclovir [Zovirax] 800 mg PO BID 7 Days #14 tablet Continued Metoprolol [Lopressor] 25 mg PO BID Citalopram [CeleXA] 20 mg PO DAILY Clopidogrel [Plavix] 75 mg PO DAILY #60 tablet Apremilast [Otezla] 30 mg PO BID Omeprazole 40 mg PO DAILY Doxycycline 100 mg PO BID Atorvastatin Calcium [Lipitor] 20 mg PO QAM Benazepril HCl 10 mg PO DAILY HYDROcodone/Acet 5/325 mg [Shanks 5-325 mg] 1 tab PO Q4-6H PRN PRN Reason: Pain Aspirin 81 mg PO QAM Triamcinolone Acet 0.1% CRM [Kenalog] 1 appl TP BID PRN PRN Reason: PSORIASIS Docusate [Colace] 100 mg PO BID Morphine Sulfate/Pf [Morphine IntraThecdal Pump] 1 each IT AD Discontinued Buspirone HCl [Buspar] 10 mg PO TID Home Medications: Citalopram [CeleXA] 20 mg PO DAILY 10/16/16 [History] Metoprolol [Lopressor] 25 mg PO BID 10/16/16 [History] Clopidogrel [Plavix] 75 mg PO DAILY #60 tablet 10/21/16 [Rx] Apremilast [Otezla] 30 mg PO BID 02/14/17 [History] Omeprazole 40 mg PO DAILY 02/14/17 [History] Doxycycline 100 mg PO BID 04/03/19 [History] Aspirin 81 mg PO QAM 04/05/19 [History] Atorvastatin Calcium [Lipitor] 20 mg PO QAM 04/05/19 [History] Benazepril HCl 10 mg PO DAILY 04/05/19 [History] Docusate [Colace] 100 mg PO BID 04/05/19 [History] HYDROcodone/Acet 5/325 mg [Shanks 5-325 mg] 1 tab PO Q4-6H PRN 04/05/19 [History] Morphine Sulfate/Pf [Morphine IntraThecdal Pump] 1 each IT AD 04/05/19 [History] Triamcinolone Acet 0.1% CRM [Kenalog] 1 appl TP BID PRN 04/05/19 [History] Acyclovir [Zovirax] 800 mg PO BID 7 Days #14 tablet 04/07/19 [Rx] Clindamycin [Cleocin] 300 mg PO Q12HR 6 Days #12 capsule 04/07/19 [Rx] Allergies/Adverse Reactions: Allergy/AdvReac Type Severity Reaction Status Date / Time Penicillins [PCN] Allergy Rash Verified 08/22/17 10:19 Date of admission: 04/05/19 14:41 Primary care physician: PCP NONE Consults: 04/04/19 08:43 Consult to Psychiatry [CONS] Routine Consulting Provider: Psychiatry [facility] Reason consult: Other [place] initiated date and time: vivid dreams, visual hallucinations Call Completed: No 04/04/19 09:00 Consult to Neurology [CONS] Routine Consulting Provider: [facility] Reason for Consult: change in mental status. visual hallucinations Call Completed: No 04/05/19 08:43 Consult to Interventional Radiology [CONS] Routine Consulting Provider: Radiology Interventional [facility] Reason for Consult: patient needs an LP. eval for AMS Call Completed: Yes 04/05/19 09:45 Consult to Infectious Diseases [CONS] Routine Consulting Provider: Infectious Disease [place] Reason for Consult: AMS. possible encephalitis vs meningitis? Call Completed: No 04/05/19 12:19 Consult to Interpret Exam [CONS] Routine Consulting Provider: Christiano Jamison Consult to Interpret Exam: Interpret EEG - Constitutional Vitals: Temp Pulse Resp BP Pulse Ox 98.6 F 62 17 142/71 96 04/07/19 07:49 04/07/19 07:49 04/07/19 07:49 04/07/19 07:49 04/07/19 07:49 General appearance: Present: cooperative, A&O X 2, mild distress, pleasant Exam: Vitals: Reviewed General: Alert and oriented x4. In no distress. Cardiovascular: RRR, normal S1 & S2, no rubs, murmurs or gallops. Lungs: CTA b/l, no wheezes or crackles. Abdomen: Soft, non-tender, no rigidity. ostomy bag. NABS in all 4 quadrants Extremities: No edema. right knee replacements Neurological: No focal neurological deficits. Rest of the physical exam is non contributory - Patient Status Disposition: Home, Self-Care Condition: Good Functional capacity at discharge: independent ambulation Overall status at discharge: patient is back to baseline - Discharge Instructions Instructions: Clindamycin (By mouth), Acyclovir (By mouth) Follow Up With: Ophelia Ruggiero CNP [Advanced Practice Nurse] - 04/13/19 9:30 am - Diet and Activity Activity: resume usual activities as tolerated Diet: low salt diet
[2019-04-07 09:23] LABS: ANA IgG by ELISA NONE DETECTED (None Detected)
--- NOTE | 2019-04-07 09:36 | Neurology Progress Note ---
<Carlos Salcido J - Last Filed: 04/07/19 14:09> Date of Encounter: 04/07/19 Time of Encounter: 09:33 Assessment and Plan (1) Acute encephalopathy Status: Resolved Clinically, he appears much improved since admission and today his neuro exam is non focal. We are seeing in follow up today for delirium of an unclear etiology. On admission he was having hallucinations and vivid dreams with a waxing and waning altered mental state and combative behavior. The s/x appear to have began a few days prior to presentation to the ED. CT of the head and EEG were unremarkable. He recently had abrupt discontinuation of his BZD's and was switched to Buspar per his daughters recollection. The abrupt discontinuation of BZD's may have been the etiology for delirium. He did not have any meningeal findings and therefore meningitis thought to be less likely. However, herpes encephalitis cannot be fully excluded. As such he was started on Acyclovir and should continue this medication for a total of 7-days. Recommendations have been d/w primary team. Okay to d/c at the discretion of the primary team. Subjective Principal diagnosis: Acute encephalopathy Interval history: Patient seen in follow-up for acute encephalopathy. Clinically, he has continued to improve throughout his stay. Today he is alert and oriented 3 and there were no episodes of combativeness or confusion overnight. He is pro gressing back to baseline mental state. No family present at the moment. Patient denies any further questions. Objective - Constitutional Vitals: Temp Pulse Resp BP Pulse Ox 98.6 F 78 17 142/71 96 04/07/19 07:49 04/07/19 08:39 04/07/19 07:49 04/07/19 07:49 04/07/19 07:49 Exam: Examination: General Examination: *CONSTITUTIONAL: Alert and oriented x 3 *GENERAL APPEARANCE OF PATIENT appears healthy and well groomed *EYES: pupils equal, round, reactive to light and accommodation, conjunctiva clear *CARDIOVASCULAR no peripheral edema, distal temperature normal, dorsalis pedis pulses normal. See vital signs Musculoskeletal: *GAIT AND STATION not assessed, however his right knee is partially fused. 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 I am unable to assess the right quadriceps strength due to partial fusion and limited range of motion as well as pain with R White. Left quadricep strength is normal. *MUSCLE TONE IN THE UPPER AND LOWER EXTREMITIES normal strength bulk and tone of both upper extremities. There is some atrophy of the right quadriceps and right leg below the knee secondary to immobility of the right knee. He has normal bulk and tone of the left lower extremity. Neurological: *ORIENTATION to person, situation, time and place *RECURRENT AND REMOTE MEMORY intact *ATTENTION AND CONCENTRATION are altered; has waxing and waning episodes of confusion and disorientation as well as some loose association with moments of lucidity *LANGUAGE FUNCTION no significant aphasia or dysarthia was noted. *FUND OF KNOWLEDGE aware of current events, past history, vocabulary *MENTAL attention span and concentration normal. *CN II optic fundi were normal, no papilledema noted. *CN III,IV, PERRLA extraocular eye movements were full, no nystagmus and no ptosis noted. *CN V shows normal sensation and jaw opens symmetrically. *CN VII shows normal facial movement symmetrically, upper and lower bilaterally. *CN VIII shows no significant hearing loss on exam *CN IX,,X palate elevated symmetrically *CN XI normal strength in the sternocleidomastoid muscles, symmetrical shoulder shrugging. *CN XII tongue protruded in the midline, with normal strength and movement. *SENSORY EXAMINATION light touch intact *REFLEXES: deep tendon reflexes were normal and symmetrical , grade 2/4 diffusely, no pathological reflexes were noted. *CEREBELLAR TESTING normal finger to nose, heel/knee/ibrahim *PAIN LEVEL chronic dull right knee pain, 3/10 today Results - Laboratory Findings CBC and BMP: 04/06/19 09:23 04/06/19 09:23 Abnormal lab findings: Abnormal lab results RBC 3.66 M/mcL (4.19-5.50) L 04/06/19 09:23 Hgb 11.0 g/dL (12.9-16.9) L 04/06/19 09:23 Hct 34.2 % (37.5-50.1) L 04/06/19 09:23 ESR 19 mm/hr (0-10) H 04/05/19 07:47 ABG pO2 77 mmHg (85-104) L 04/04/19 03:48 ABG Total CO2 28 mEq/L (20-26) H 04/04/19 03:48 BUN 7 mg/dL (8-23) L 04/06/19 09:23 Glucose 119 mg/dL (70-105) H 04/06/19 09:23 POC Glucose 106 mg/dL (70-99) H 04/04/19 17:32 Lactic Acid 2.8 mmol/L (0.5-2.2) H 04/04/19 18:07 AST 11 Units/L (13-39) L 04/04/19 06:02 13 mg/L (Less than 10) H 04/05/19 10:20 5.9 g/dL (6.4-8.9) L 04/04/19 06:02 2.0 g/dL (2.4-3.5) L 04/04/19 06:02 Angiotensin Convert Enz 6 U/L (9-67) L 04/04/19 15:44 Vancomycin Trough 4 mcg/mL (5-10) L 04/06/19 09:23 Consult Discharge Plan - Plan Instructions: Clindamycin (By mouth), Acyclovir (By mouth) Referrals: Ophelia Ruggiero, [facility] [Advanced Practice Nurse] - 04/13/19 9:30 am Prescriptions: Clindamycin [Cleocin] 300 mg PO Q12HR 6 Days #12 capsule Acyclovir [Zovirax] 800 mg PO BID 7 Days #14 tablet <Christiano Jamison - Last Filed: 04/08/19 07:20> Date of Encounter: 04/08/19 Assessment and Plan (1) Acute encephalopathy Status: Resolved The patient was not seen by me on this date. Subjective Interval history: The patient was not seen by me on this date. Objective - Constitutional Vitals: Temp Pulse Resp BP Pulse Ox 98.6 F 78 17 142/71 96 04/07/19 07:49 04/07/19 08:39 04/07/19 07:49 04/07/19 07:49 04/07/19 07:49 Results - Laboratory Findings CBC and BMP: 04/06/19 09:23 04/06/19 09:23 Abnormal lab findings: Abnormal lab results RBC 3.66 M/mcL (4.19-5.50) L 04/06/19 09:23 Hgb 11.0 g/dL (12.9-16.9) L 04/06/19 09:23 Hct 34.2 % (37.5-50.1) L 04/06/19 09:23 ESR 19 mm/hr (0-10) H 04/05/19 07:47 ABG pO2 77 mmHg (85-104) L 04/04/19 03:48 ABG Total CO2 28 mEq/L (20-26) H 04/04/19 03:48 BUN 7 mg/dL (8-23) L 04/06/19 09:23 Glucose 119 mg/dL (70-105) H 04/06/19 09:23 POC Glucose 106 mg/dL (70-99) H 04/04/19 17:32 Lactic Acid 2.8 mmol/L (0.5-2.2) H 04/04/19 18:07 AST 11 Units/L (13-39) L 04/04/19 06:02 13 mg/L (Less than 10) H 04/05/19 10:20 5.9 g/dL (6.4-8.9) L 04/04/19 06:02 2.0 g/dL (2.4-3.5) L 04/04/19 06:02 Angiotensin Convert Enz 6 U/L (9-67) L 04/04/19 15:44 Vancomycin Trough 4 mcg/mL (5-10) L 04/06/19 09:23
== END 2019-04-07 10:43 | disposition home or self-care (01) | DRG 70 ==
LOC: 2NENU → SUATTDRO 18:44 → 2NNU 04-05 02:03
PROVIDERS: ADMIT Internal Medicine; ATTEND Internal Medicine

== ENCOUNTER 2022-07-19 15:47 | Inpatient (IN) ==
[2022-07-19] MEDS ORDERED: Acetaminophen 325 MG TABLET PO PRN (19:20)
[2022-07-19] MEDS ORDERED: Ondansetron ODT 4 MG TAB.RAPDIS SL PRN (19:20)
[2022-07-19] MEDS ORDERED: Naloxone 0.4 MG/ML INJ IVP PRN (19:20)
[2022-07-19] MEDS ORDERED: *HR* HYDROmorphone 2 MG/ML SYRINGE IVP ONE (19:49)
[2022-07-19] MEDS: Doxycycline 100 MG CAPSULE PO SCH (20:34)
[2022-07-19] MEDS: Melatonin 3 MG TABLET PO PRN (20:34)
[2022-07-19] MEDS: *HR* OxyCODONE Immed Rel 5 MG TABLET PO PRN (23:01)
[2022-07-20] MEDS ORDERED: *HR* HYDROmorphone 2 MG/ML SYRINGE IVP ONE ×2 (00:15→00:47)
[2022-07-20] MEDS ORDERED: *HR* FentaNYL (PF) 100 MCG/2 ML VIAL IVP ONE (02:30)
[2022-07-20] MEDS ORDERED: Morphine Sulfate 2 MG/ML SYRINGE IVP ONE (03:36)
[2022-07-20 04:51] LABS: Hematocrit 39.7 % (37.5-50.1); Hemoglobin 13.3 g/dL (12.9-16.9); Mean Corpuscular HGB Conc 33.5 g/dL (31.6-35.5); Mean Corpuscular Hemoglobin 29.8 pg (28.0-33.3); Mean Platelet Volume 9.9 fL (9.4-12.4); Platelet Count 244 K/mcL (140-400); Red Blood Count 4.46 M/mcL (4.19-5.50); Red Cell Distribution Width 13.4 % (11.5-14.5); White Blood Count 9.8 K/mcL (4.3-11.1)
[2022-07-20 05:14] LABS: BUN/Creatinine Ratio 22 (6-26); Blood Urea Nitrogen 17 mg/dL (8-23); Calcium 9.1 mg/dL (8.6-10.3); Carbon Dioxide 22 mEq/L (23-29); Chloride 108 mEq/L (98-107); Glucose 131 mg/dL (70-105); Magnesium 1.8 mg/dL (1.6-2.6); Osmolality,Calculated 289 (280-300); Phosphorous 3.8 mg/dL (2.7-4.5); Potassium 4.2 mEq/L (3.5-5.1); Sodium 138 mEq/L (136-145)
[2022-07-20] MEDS ORDERED: Haloperidol Lactate 5 MG/ML VIAL IVP ONE (05:16)
[2022-07-20] MEDS: *HR* OxyCODONE Immed Rel 5 MG TABLET PO PRN (07:40)
[2022-07-20] MEDS: Doxycycline 100 MG CAPSULE PO SCH (07:40)
[2022-07-20] MEDS ORDERED: *HR* HYDROmorphone 2 MG/ML SYRINGE IVP PRN (07:50)
[2022-07-20] MEDS ORDERED: Ketorolac 30 MG/ML VIAL IVP ONE (09:58)
[2022-07-20] MEDS: *HR* HYDROcodone/Acet 5/325 mg TABLET PO PRN ×2 (13:35→20:47)
[2022-07-20] MEDS: *HR* HYDROmorphone PCA *PREMADE* 20 MG/1MG/ML (20mL) PCA VIAL IVC PRN (14:44)
[2022-07-20] MEDS: Nicotine 21 MG PATCH.TD24 TD SCH (19:06)
[2022-07-20] MEDS: Lactobacillus 1 EACH CAP.SPRINK PO SCH (20:47)
[2022-07-21] MEDS: Lactobacillus 1 EACH CAP.SPRINK PO SCH ×2 (08:03→20:41)
[2022-07-21] MEDS: *HR* Enoxaparin 40 MG/0.4 ML SYRINGE SQ SCH (08:04)
[2022-07-21] MEDS: Nicotine 21 MG PATCH.TD24 TD SCH (08:04)
[2022-07-21] MEDS: *HR* HYDROmorphone PCA *PREMADE* 20 MG/1MG/ML (20mL) PCA VIAL IVC PRN (08:15)
[2022-07-21] MEDS ORDERED: amLODIPine 5 MG TABLET PO SCH (09:00)
[2022-07-21] MEDS: Aspirin Enteric Coated 81 MG Tablet PO SCH (10:03)
[2022-07-21] MEDS: Morphine Intrathecdal Pump IT SCH (10:08)
[2022-07-21] MEDS: Gabapentin 400 MG CAPSULE PO SCH ×2 (15:01→20:39)
[2022-07-21] MEDS: Melatonin 3 MG TABLET PO PRN (20:42)
[2022-07-22] MEDS: *HR* Enoxaparin 40 MG/0.4 ML SYRINGE SQ SCH (06:47)
[2022-07-22] MEDS: Gabapentin 400 MG CAPSULE PO SCH ×2 (08:50→14:30)
[2022-07-22] MEDS: Nicotine 21 MG PATCH.TD24 TD SCH (08:51)
[2022-07-22] MEDS: Aspirin Enteric Coated 81 MG Tablet PO SCH (08:51)
[2022-07-22] MEDS: Lactobacillus 1 EACH CAP.SPRINK PO SCH (08:51)
[2022-07-22] MEDS ORDERED: lisinopriL 10 MG TABLET PO SCH (09:00)
[2022-07-22] MEDS ORDERED: amLODIPine 5 MG TABLET PO SCH (09:00)
[2022-07-22] MEDS: Morphine Intrathecdal Pump IT SCH (09:38)
[2022-07-22 09:52] LABS: Magnesium 1.9 mg/dL (1.6-2.6); Phosphorous 2.9 mg/dL (2.7-4.5)
[2022-07-22] MEDS ORDERED: *HR* HYDROmorphone PCA *PREMADE* 20 MG/1MG/ML (20mL) PCA VIAL IVC PRN (09:55)
[2022-07-22 10:05] LABS: Thyroid Stimulating Hormone 2.228 mcIU/mL (0.340-5.600)
[2022-07-22 10:10] LABS: BUN/Creatinine Ratio 23 (6-26); Blood Urea Nitrogen 19 mg/dL (8-23); Calcium 8.8 mg/dL (8.6-10.3); Carbon Dioxide 25 mEq/L (23-29); Chloride 106 mEq/L (98-107); Glucose 154 mg/dL (70-105); Osmolality,Calculated 289 (280-300); Potassium 3.8 mEq/L (3.5-5.1); Sodium 137 mEq/L (136-145)
[2022-07-22 10:18] VITALS: BP 149/77; PULSE 65; TEMP 98.2; O2SAT 94
[2022-07-22] MEDS ORDERED: APREMILAST 30 MG PO SCH (21:00)
== END 2022-07-22 18:41 | disposition home or self-care (01) | DRG 74 ==
LOC: 2ANU → SUATTDRO 18:46
PROVIDERS: ADMIT Internal Medicine; ATTEND Nurse Practitioner